=== PATIENT | female | born 1985 | race Caucasian/White ===

== ENCOUNTER → 2021-04-07 | Outpatient (CLI) | payer MEDICAID ==
--- NOTE | 2021-04-07 13:54 | Diagnostic Imaging Report ---
INDICATION: survey. TECHNIQUE: Multiple real-time grayscale images were obtained over the gravid uterus. COMPARISON: None FINDINGS: There is a single live fetus in a cephalic presentation. heart rate was recorded at 133 bpm. Placenta is anterior. No previa is detected. Amniotic fluid volume is normal. Cervical length is 4.8 cm. survey shows kidneys, bladder and stomach to be unremarkable. brain does show ventricles to be slightly prominent at 10 mm. Follow-up would be recommended. There is a four-chamber heart. There is a three-vessel cord with normal insertion. spine is unremarkable. face anatomy is limited due to position. Biometrical measurements are as follows: Biparietal 5.01 cm, age 21 weeks 2 days. Head circumference 18.56 cm, age 21 weeks 0 days. Abdominal circumference 17.36 cm, age 22 weeks 3 days. Femur length 3.66 cm, age 21 weeks 5 days. Sonographic estimate age: 21 weeks 5 days. Sonographic estimated date of delivery: 08/13/2021. Estimated Weight: 456 gm (+/- 67 gm). LMP percentile: 91%. heart rate: 133 beats per minute. number: 1 of 1. IMPRESSION: Single live IUP of 21 weeks 5 days gestational age. Estimated date of confinement sonographically is 08/13/2021. survey does show slightly prominent ventricles intracranially. Follow-up would be recommended. In addition, facial anatomy was limited due to position. Dictated by: Dictated on workstation # [id number]
== END ==
LOC: RAD 09:46
PROVIDERS: ATTEND Family Medicine
DX: Z34.92 Encounter for supervision of normal pregnancy, unspecified, second trimester (principal); Z3A.21 21 weeks gestation of pregnancy
CPT/HCPCS: 76805

== ENCOUNTER → 2021-05-07 | Outpatient (CLI) | payer MEDICAID ==
--- NOTE | 2021-05-15 09:53 | Diagnostic Imaging Report ---
INDICATION: Follow-up prominent ventricles. TECHNIQUE: Multiple real-time grayscale images were obtained over the gravid uterus. COMPARISON: 04/07/2021. FINDINGS: There is a single live fetus in a cephalic presentation. heart rate was recorded at 143 bpm. Placenta is anterior. Amniotic fluid index is 20 cm. nose and lips were visualized on today's study. ventricles remain somewhat prominent at 9 mm compared with 10 mm on prior. No other abnormalities are seen. IMPRESSION: Continued prominent ventricles. Continued follow-up could be performed. Dictated by: Dictated on workstation # [id number]
== END ==
LOC: RAD 15:15
PROVIDERS: ATTEND Family Medicine
DX: Z36.3 Encounter for antenatal screening for malformations (principal)
CPT/HCPCS: 76816

== ENCOUNTER → 2021-06-23 | Outpatient (CLI) | payer MEDICAID ==
--- NOTE | 2021-06-23 17:07 | Diagnostic Imaging Report ---
INDICATION: Follow-up prominent ventricles. TECHNIQUE: Multiple real-time grayscale images were obtained over the gravid uterus. COMPARISON: 05/07/2021. FINDINGS: heart rate is 142 bpm. Ventricles are stable in size measuring 9 mm, similar to prior study. IMPRESSION: Stable mildly prominent ventricles when compared with examination from 05/07/2021. Dictated by: Dictated on workstation # [id number]
== END ==
LOC: RAD 14:00
PROVIDERS: ATTEND Family Medicine
DX: Z34.90 Encounter for supervision of normal pregnancy, unspecified, unspecified trimester (principal); Z3A.00 Weeks of gestation of pregnancy not specified
CPT/HCPCS: 76816

== ENCOUNTER 2021-08-10 05:49 | Inpatient (IN) | payer MEDICAID ==
[2021-08-10] VITALS (28 sets, daily range): BP systolic 107–166; BP diastolic 55–127
[~2021-08-10] VITALS: Ht 175.3 cm; Wt 121.0 kg
--- NOTE | 2021-08-10 06:35 | History & Physical-OB ---
OB - Chief Complaint & HPI Date/Time Date of Admission: Date of Admission: Aug 10, 2021 at 05:49 Date seen by a Provider: Aug 10, 2021 Time Seen by a Provider: 06:35 Chief Complaint/History OB-Reason for Admission/Chief: Induction of Labor Hx : 3 Hx Para: 2 Gestational Age in Weeks: 39 Admission Nurse Assessment Rev: Yes History of Labs GBS negative Allergies and Home Medications Allergies Coded Allergies: Codeine (Verified Adverse Reaction, Mild, N/V, 09/16/06) Patient Home Medication List Home Medication List Reviewed: Yes OB - History Hx of Present Care: Yes Ultrasounds: Normal mid trimester US Obstetrical Complications: None Medical Complications: None Patient Past Medical History no chronic medical problems OB - Admission Exam Physical Exam HEENT: Moist Membranes Heart: Rhythm Normal Lungs: Clear Abdomen: Gravid Cervical Dilatation: 2cm Effacement: 75% Station: -3 Membranes: Intact Heart Rate: 140's Accelerations: Accelerations Present Short Term Variability: Present Head Bookkeeper Variability: Average (6-25) Contractions on Admission: >10 Minutes Apart Intensity: Mild Peterson Scoring Tool (Modified) Dilation (cm): 1-2cm (1) Effacement (%): 31-51% (1) Descent/Station: -3 (0) Cervix Consistency: Medium(1) Cervix Position: Middle/Mid-Position (1) Add 1 point for: Each previous vaginal delivery (1) Peterson Score: 6 OB - Assessment/Plan/Diagnosis Assessment Assessment: induction of labor (at term 39weeks) Admission Dx 1. IUP at term 39 weeks. Admission Status: Inpatient Order (span 2 midnights) Reason for Inpatient Admission: induction for L&D Plan Plan: Induction Induction Method: AROM Other Plan -epidural if patient desires -pitocin as necessary REMI VICTOR MD Aug 10, 2021 06:35
[2021-08-10 06:43] LABS: BASOPHILS # (AUTO) 0.1 10^3/uL (0.0-0.1); BASOPHILS % (AUTO) 0 % (0-10); EOSINOPHILS # (AUTO) 0.3 10^3/uL (0.0-0.3); EOSINOPHILS % (AUTO) 2 % (0-10); HEMATOCRIT 40 % (35-52); HEMOGLOBIN 13.2 g/dL (11.5-16.0); LYMPHOCYTES # (AUTO) 2.2 10^3/uL (1.0-4.0); LYMPHOCYTES % (AUTO) 18 % (12-44); MEAN CORPUSCULAR HEMOGLOBIN 29 pg (25-34); MEAN CORPUSCULAR HGB CONC 33 g/dL (32-36); MEAN CORPUSCULAR VOLUME 88 fL (80-99); MEAN PLATELET VOLUME 9.5 fL (9.0-12.2); MONOCYTES % (AUTO) 8 % (0-12); NEUTROPHILS # (AUTO) 8.7 10^3/uL (1.8-7.8); NEUTROPHILS % (AUTO) 71 % (42-75); PLATELET COUNT 378 10^3/uL (130-400); WHITE BLOOD COUNT 12.3 10^3/uL (4.3-11.0)
[2021-08-10] MEDS ORDERED: OXYTOCIN PRE-MIX DRIP 500 ML IV SCH ×2 (06:45→12:15)
[2021-08-10] MEDS ORDERED: D5 LR IV SOLUTION 1,000 ML IV SCH (06:45)
[2021-08-10] MEDS ORDERED: fentaNYL 2 mcg/ml BUPIVA 0.125 100 ML ONE (09:57)
[2021-08-10] MEDS ORDERED: fentaNYL INJ 100 MCG/2 ML AMP ONE (10:00)
[2021-08-10] MEDS ORDERED: BUPIVACAINE 0.25% 30 ML (SENSORCAINE) VIAL ONE (10:00)
[2021-08-10] MEDS ORDERED: fentaNYL 2 mcg/ml BUPIVA 0.125 100 ML IV SCH (11:15)
[2021-08-10] MEDS ORDERED: NALOXONE 0.4 MG/ML 1 ML (NARCAN) VIAL IV PRN ×2 (11:15→12:15)
[2021-08-10] MEDS ORDERED: diphenhydrAMINE 50 MG/ML INJ (BENADRYL) IV PRN (11:15)
[2021-08-10] MEDS ORDERED: LACTATED RINGERS 1,000 ML IV ONE (11:15)
[2021-08-10] MEDS ORDERED: CATHETER FLUSH 10 ML SYR IV PRN (11:15)
[2021-08-10] MEDS ORDERED: ONDANSETRON 4 MG/2 ML (SDV) Z0FRAN ONE ×2 (11:20→13:23)
[2021-08-10] MEDS: ONDANSETRON 4 MG/2 ML (SDV) Z0FRAN IV PRN ×2 (11:23→13:25)
[2021-08-10] MEDS ORDERED: MEASLES,MUMPS,RUBELLA 1 EA INJ SQ ONE (12:15)
[2021-08-10] MEDS ORDERED: BENZOCAINE/MENTHOL (DERMOPLAST) 56 ML CAN TP PRN (12:15)
[2021-08-10] MEDS ORDERED: TETANUS,DIPTH,PERTUSS P/F (BOOSTRIX) 0.5 ML VIAL IM ONE ×2 (12:15→22:00)
[2021-08-10] MEDS ORDERED: WITCH HAZEL(TUCKS) 40 EA JAR TOP PRN (12:15)
--- NOTE | 2021-08-10 12:18 | OB Labor & Delivery Record ---
L&D History Date of Service Date of Service: Aug 10, 2021 History Expected Date of Delivery: Aug 14, 2021 Gestational Age in Weeks: 39 Hx : 3 Hx Para: 3 Complications Events: Gestational Diabetes (diet controlled), Routine care Operative Indications (Cesarea: N/A-Vaginal Delivery Intrapartal Events: None L&D Stage1 Stage One Onset of Labor - Date: Aug 10, 2021 Onset of Labor - Time: 06:56 Monitors and Tracing Monitor Mode: Internal Heart Rate: 140 Monitor Accelerations: Uniform Monitor Decelerations: None Assisted Variability: Average (6-10) Short Term Variability: Present Presentation: Vertex Vital Signs VS - Last 72 Hours, by Label 08/10/21 08/10/21 08/10/21 08/10/21 07:00 07:00 07:30 07:45 Temp 36.5 36.5 Pulse 93 93 90 89 Resp 18 18 18 18 B/P (MAP) 140/81 (100) 138/72 (94) 125/70 (88) Pulse Ox 98 98 97 O2 Delivery Room Air Room Air Room Air Room Air 08/10/21 08/10/21 08:00 08:15 Pulse 83 Resp 18 18 B/P (MAP) 138/74 (95) O2 Delivery Room Air Room Air Signs of Distress by FHT Signs of Distress no Rupture of Membranes Amniotic Membrane Rupture Time: 0656 Amniotic Membrane Fluid Desc.: Clear L&D Stage2 Stage Two Stage II Date: Aug 10, 2021 Stage II Time: 11:24 Monitors and Tracing Monitor Mode: Internal Heart Rate: 140 Monitor Accelerations: Uniform Monitor Decelerations: Variable Assisted Variability: Average (6-10) Short Term Variability: Present Position: Left Occiput Anterior Presentation: Vertex Signs of Distress by FHT Signs of Distress no Cord Descript/Complications Cord Vessel Description: 3 Vessels Delivery Type Delivery Method: Spontaneous Vaginal Anterior Shoulder: Right Episiotomy/Perineal Laceration Laceraction(s)/Extensions: No Episiotomy Description: Periurethral Extnsion/lac (R) Condition of Infant Delivery 1 minute Comment: 8 5 minute Comment: 8 Condition of Infant Condition of : Living Exam: No Observed Abnormalities Resuscitation Resuscitation: N/A - Spontaneous Resp L&D Stage3 Stage Three Stage III Date: Aug 10, 2021 Stage III Time: 11:29 Pictocin Pitocin Administration mu/min: 2 Pitocin ml/hr: 2 Pitocin Administration Comment: PITOCIN GTT STARTED Placenta Delivery Placenta Delivery: Spontaneous Delivery Summary Summary Estimated blood loss (mL): 200 Condition of Delivery Examined: Cervix Examined Post Hemorrhage: No Intervention Required none REMI VICTOR MD Aug 10, 2021 12:17
[2021-08-10] MEDS ORDERED: METOCLOPRAMIDE INJ 10 MG/2 ML (REGLAN) IVP ONE (12:45)
[2021-08-10] MEDS ORDERED: CATHETER FLUSH 10 ML SYR IV SCH (14:00)
[2021-08-10] MEDS: ACETAMINOPHEN 500 MG TAB (TYLENOL) PO SCH ×2 (16:10→22:03)
[2021-08-10] MEDS: IBUPROFEN 600 MG (MOTRIN) TAB PO SCH ×2 (16:10→22:04)
[2021-08-10] MEDS: CATHETER FLUSH 10 ML SYR IV SCH ×2 (20:09→22:29)
[2021-08-10] MEDS: DOCUSATE SODIUM 100 MG (COLACE) CAP PO SCH (20:53)
[2021-08-11 01:06] VITALS: BP 133/62
[2021-08-11] MEDS: ACETAMINOPHEN 500 MG TAB (TYLENOL) PO SCH ×2 (03:57→10:44)
[2021-08-11] MEDS: IBUPROFEN 600 MG (MOTRIN) TAB PO SCH ×2 (03:57→10:45)
[2021-08-11 04:06] VITALS: BP 139/64
[2021-08-11] MEDS: CATHETER FLUSH 10 ML SYR IV SCH (06:00)
--- NOTE | 2021-08-11 07:31 | Discharge Summary ---
Diagnosis/Chief Complaint Date of Admission Aug 10, 2021 at 05:49 Date of Discharge August 11, 2021 Discharge Date: Aug 11, 2021 Discharge Time: 14:00 Admission Diagnosis Admission Diagnosis 1. Intrauterine at term 39 weeks Discharge Diagnosis 1. Intrauterine at term 39 weeks Reason Hospital Visit 36-year-old 3 now term 3 L3 who initially presented to labor and delivery for induction of labor at 39 weeks gestation. She was essentially noted to have uncomplicated care although she was treated for diet controlled gestational diabetes. She was noted to be negative for GBS at 36 weeks perineal check. Discharge Summary-OBS Procedures 1. Epidural per anesthesia 2. Spontaneous vaginal delivery 3. Repair of right sided periurethral tear Discharge Physical Examination Allergies: Coded Allergies: Codeine (Verified Adverse Reaction, Mild, N/V, 09/16/06) Vitals & I&Os Vital Signs Date Time Temp Pulse Resp B/P (MAP) Pulse Ox O2 Delivery O2 Flow Rate FiO2 08/11/21 04:06 36.5 79 16 139/64 (89) 98 Room Air General Appearance: Alert, Oriented X3 Respiratory: Clear to Auscultation Cardiovascular: Regular Rate Abdominal: Soft (with uterus firm) Neuro: Normal Speech Hospital Course following admission patient underwent routine antepartum care orders. She had amniotomy in the morning of August 10, 2021 with clear fluid noted. She requested epidural and this was given per anesthesia. She achieved adequate pain relief. Also required low-dose Pitocin augmentation to achieve adequate contraction pattern. Ultimately she went on to deliver a large for gestational age term viable male in the morning of August 10, 2021. See labor and delivery note for full details. Following delivery she underwent routine care orders. She had no complications during the remainder of hospital stay. Her hemoglobin on admission was noted to be 13.2. After multiple attempts to check hemoglobin in the morning of August 11 the hemoglobin was canceled since she had stable vital signs. She was felt ready for dismissal during the afternoon of August 11, 2021. Discharge Instructions to patient/family Please see electronic discharge instructions given to patient. Discharge Medications Reviewed and agree with Discharge Medication list on patient's Discharge Instruction sheet REMI VICTOR MD Aug 11, 2021 07:31
--- NOTE | 2021-08-11 07:33 | Discharge Inst-Women's Service ---
Discharge Inst-Women's Serv Depart Medication/Instructions New, Converted or Re-Newed RX: Other Instructions May take [id number] ibuprofen2 or 3 tablets every 6 hours if needed for cramps. Problems Reviewed?: Yes Consults/Follow Up Additional Follow Up: Yes (with Dr. Victor in 6 weeks.) Activity Activity: Activity as Tolerated Driving Instructions: No Driving for 1 Week Nothing Inside Vagina: No Teague (for 6 weeks) Diet Discharge Diet: Regular Diet Return to The Hospital For: as below Symptoms to Report to : Swelling Increased, Pain Increased, Fever Over 101 Degrees F, Vaginal Bleeding Increase, Vaginal Discharge Foul For Any Problems or Questions: Contact Your Physician REMI VICTOR MD Aug 11, 2021 07:33
[2021-08-11] MEDS: DOCUSATE SODIUM 100 MG (COLACE) CAP PO SCH (10:44)
[2021-08-11 10:46] VITALS: BP 142/70
--- NOTE | 2021-08-11 13:54 | Anesthesia-Regional Post-Op ---
Regional Patient Condition Mental Status: Alert, Oriented x3 Circulation: Same as Pre-Op Headache: Absent Sensation: Full Recovery Motor Block: Absent Post Op Complications Complications None Follow Up Care/Instructions Patient Instructions None needed. Anesthesia/Patient Condition Patient is doing well, no complaints, stable vital signs, no apparent adverse anesthesia problems. No complications reported per nursing. DELVIS RIOS CRNA Aug 11, 2021 13:54
== END 2021-08-11 14:10 | disposition home or self-care (01) | DRG 807 ==
LOC: LDRP 05:49
PROVIDERS: ADMIT Family Medicine; ATTEND Family Medicine
PROC: 10E0XZZ Delivery of Products of Conception, External Approach (ICD-10-PCS; principal; 2021-08-10)
PROC: 0W8NXZZ Division of Female Perineum, External Approach (ICD-10-PCS; 2021-08-10)
PROC: 3E033VJ Introduction of Other Hormone into Peripheral Vein, Percutaneous Approach (ICD-10-PCS; 2021-08-10)
DX: O24.429 Gestational diabetes mellitus in childbirth, unspecified control (principal); Z37.0 Single live birth; Z3A.39 39 weeks gestation of pregnancy
CPT/HCPCS: 36415; 85025; 86850; 86900; 86901; 90715